=== PATIENT | female | born 1965 | race Caucasian/White ===

== ENCOUNTER → 2017-10-07 | Outpatient (CLI) | payer BC ==
--- NOTE | 2017-10-07 16:39 | WOMENS IMAGING REPORT ---
EXAM DESCRIPTION: 3D SCREENING MAMMO BILAT COMPLETED DATE/TIME: 10/07/2017 1:27 pm REASON FOR STUDY: SCREENING MAMMO Z12.31 ENCNTR SCREEN MAMMOGRAM FOR MALIGNANT NEOPLASM OF ROBERT COMPARISON: 2014 TECHNIQUE: Standard craniocaudal and mediolateral oblique views of each breast recorded using digita l acquisition and breast tomosynthesis. LIMITATIONS: None. FINDINGS: Findings present which are benign by mammographic criteria. No suspicious masses, calcifi cations or architectural distortion. Pertinent benign findings: Stable right breast intramammary node Read with the assistance of CAD. .[facility] - R2 C[employer]ova Version 1.3 .[facility] - R2 Cenova Version 1.3 .[facility] - R2 Cenova Version 2.4 .[facility] [place] Cenova Version 2.4 .[facility] - R2 [employer] Version 9.2 Benign mammographic findings may include one or more of the following: Smooth masses, popcorn/rim/co arse calcifications, asymmetries, post-procedure changes, and lesions with long-standing stability. IMPRESSION: BENIGN MAMMOGRAPHIC FINDINGS. BIRADS 2 BREAST DENSITY: b. There are scattered areas of fibroglandular density. BIRAD: 2 BENIGN FINDING(S) RECOMMENDATION: RECOMMENDATION: ROUTINE SCREENING COMMENT: The patient has been notified of the results by letter per [place] requirements. Additional no tification policies are in place for contacting patient with suspicious or incomplete findings. Quality ID #[id number]: The [employer] recommends an annual screening mammogram for women aged 40 years or over. This facility utilizes a reminder system to ensure that all patients receive reminder letters, and/or direct phone calls for appointments. This includes reminders for routine scr eening mammograms, diagnostic mammograms, or other Breast Imaging Interventions when appropriate. Th is patient will be placed in the appropriate reminder system. The [employer] [place] [employer] (ACR) has developed recommendations for screening MRI of the breast s in certain patient populations, to be used in conjunction with mammography. Breast MRI surveillanc e may be appropriate for women with more than 20% lifetime risk of developing breast cancer as deter mined by genetic testing, significant family history of the disease, or history of mantle radiation f or Hodgkins Disease. ACR Practice Guidelines 2008. DBT Technology DBT is a type of tomographic mammography. With conventional mammography, overlapping breast tissue ma y make lesions difficult to detect, even with good compression. DBT uses an x-ray tube that rotates a round the breast, taking images at different angles. These images are then combined to create thin sl ices of the breast that the radiologist can view as a 3D reconstruction. The Hologic unit can perform full-field digital mammograms (2D imaging); or DBT (3D imaging); or both, in a combination mode that quickly performs both the mammogram and the tomosynthesis scan while the breast is still compressed. PQRS 6045F: Fluoroscopic imaging is not utilized for breast tomosynthesis. TECHNICAL DOCUMENTATION: FINDING NUMBER: (1) ASSESSMENT: (1) JOB ID: [id number] [employer]- All Rights Reserved
== END ==
LOC: WI 10:44
PROVIDERS: ATTEND Physician Assistant
DX: Z12.31 Encounter for screening mammogram for malignant neoplasm of breast (principal)
CPT/HCPCS: 77063; G0202; 77067

== ENCOUNTER 2019-02-25 04:12 | Emergency (ER) | payer SELFPAY ==
[2019-02-25 04:24] VITALS: BP 156/91
[2019-02-25] MEDS ORDERED: PREDNISONE 20 MG TABLET PO ONE (04:54)
--- NOTE | 2019-02-25 04:57 | ER Document Report ---
ED General - General Chief Complaint: Difficulty Swallowing Stated Complaint: THROAT PROBLEM Time Seen by Provider: 02/25/19 04:42 Primary Care Provider: DELON DALAL PA-C [NO LOCAL MD] - Follow up as needed TRAVEL OUTSIDE OF THE [place] IN LAST 30 DAYS: No - HPI Notes: Patient is a 53-year-old female who presents to the emergency department. She believes her uvula swollen. She states it happens in the middle the night sometimes. It happens once every few years. She denies any new exposures. She states it feels difficult to swallow, but she denies any difficulty breathing. She has not taken anything for this as of yet. Of note she did have recent oral surgery for an abscessed tooth. She denies any fevers or chills. No nausea or vomiting. - Related Data Allergies/Adverse Reactions: No Known Allergies Allergy (Verified 08/27/17 10:28) Past Medical History - General Information source: Patient - Social History Smoking Status: Former Smoker Family History: Reviewed & Not Pertinent - Past Medical History Cardiac Medical History: Reports: Hx Hypercholesterolemia, Hx Hypertension Endocrine Medical History: Reports: Hx Diabetes Mellitus Type 2 Renal/ Medical History: Denies: Hx Peritoneal Dialysis Past Surgical History: Reports: Hx Cholecystectomy, Hx Thyroid Surgery, Hx Tonsillectomy - Immunizations Hx Diphtheria, Pertussis, Tetanus Vaccination: No Review of Systems - Review of Systems Constitutional: No symptoms reported EENT: See HPI Cardiovascular: No symptoms reported Respiratory: No symptoms reported Gastrointestinal: No symptoms reported Musculoskeletal: No symptoms reported Skin: No symptoms reported Neurological/Psychological: No symptoms reported Physical Exam - Vital signs Vitals: Temp Pulse Resp BP Pulse Ox 97.8 F 62 18 156/91 H 96 02/25/19 04:23 02/25/19 04:23 02/25/19 04:23 02/25/19 04:23 02/25/19 04:23 - Notes Notes: Head is normocephalic and atraumatic. Pupils are equal, round, reactive to light. Oral mucosa is moist. She has sutures in place from recent dental extractions in the right maxillary premolar molar region. Examination of the uvula yields a moderate amount of edema, it hangs down and rests on the base of the tongue. No other pharyngeal edema, oral edema, or lingual edema noted. Heart is regular rate and rhythm, lungs are clear to auscultation bilaterally with normal respiratory effort. Skin is warm and dry, no rash. Course - Re-evaluation Re-evalutation: 02/25/19 04:53 Patient presents to the emergency department for evaluation. She does have uvula edema. We will treat her with steroids and antihistamines. She is told to drink cold liquids. The patient currently does not have any insurance. We will treat her only with oral prednisone. She is reminded that the steroids will increase her blood sugar, to be very mindful of her diet in the next several days. She voiced understanding to this. She is to return to the ED with worsening or new concerning symptoms of any sort. - Vital Signs Vital signs: Temp Pulse Resp BP Pulse Ox 97.8 F 62 18 156/91 H 96 02/25/19 04:23 02/25/19 04:23 02/25/19 04:23 02/25/19 04:23 02/25/19 04:23 Discharge - Discharge Clinical Impression: Uvular edema Condition: Stable Disposition: HOME, SELF-CARE Additional Instructions: Uvula Swelling You are experienceing swelling (or "edema") of the uvula, the structure in the midline, back, roof of the mouth that hangs down into the throat area. Normally, this structure causes no problems, but when swollen, it may be painful, irritating to swallow, and even cause a "tickle" in the back of the throat leading to a cough. Common causes of swelling of the uvula are allergic reactions, irritation, trauma, or infections (both viral and bacterial). Treatment usually consists of symptomatic measures such as cool mist vaporizer, cold drinks and food and ice chips, and pain medication. Occasionally, anti-inflammatory steroid medication(prednisone) may be prescribed and an antibiotic may be prescribed if there is indication of a bacterial infection. Avoid too much exercise as breathing heavily will dry and irritate the uvula further. Likewise, too dry air as with too much heat or air conditioning will further irritate this condition. Most of the time the swelling and discomfort subsides in a day or two. If you experience difficulty breathing and passing air through the back of the throat or if you become unable to swallow, even your saliva, you should return for re-evaluation. Prescriptions: RX: Prednisone [Deltasone 20 mg Tablet] See Protocol PO DAILY #19 tablet Referrals: DELON DALAL PA-C [NO LOCAL MD] - Follow up as needed
== END 2019-02-25 05:05 | disposition home or self-care (01) ==
LOC: ER 04:12
DX: K13.79 Other lesions of oral mucosa (principal); R13.10 Dysphagia, unspecified; Z87.891 Personal history of nicotine dependence; I10 Essential (primary) hypertension; E11.9 Type 2 diabetes mellitus without complications
CPT/HCPCS: 99282; J7512

== ENCOUNTER → 2020-07-18 | Outpatient (CLI) | payer OTHER ==
[2020-07-18 11:16] LABS: ABSOLUTE EOSINOPHILS # (AUTO) 0.1 10^3/uL (0.0-0.6); ABSOLUTE LYMPHOCYTES (AUTO) 2.7 10^3/uL (0.5-4.7); ABSOLUTE MONOCYTES (AUTO) 0.5 10^3/uL (0.1-1.4); ABSOLUTE NEUT (AUTO) 3.5 10^3/uL (1.7-8.2); BASOPHILS % (AUTO) 0.5 % (0-2); HEMATOCRIT 40.9 % (36.0-47.0); HEMOGLOBIN 14.4 g/dL (12.0-15.5); LYMPHOCYTES % (AUTO) 39.4 % (13-45); MEAN CORPUSCULAR HEMOGLOBIN 29.3 pg (27.0-33.4); MEAN CORPUSCULAR HGB CONC 35.2 g/dL (32.0-36.0); MEAN CORPUSCULAR VOLUME 83 fl (80-97); MONOCYTES % (AUTO) 7.8 % (3-13); PLATELET COUNT 275 10^3/uL (150-450); RED BLOOD COUNT 4.92 10^6/uL (3.72-5.28); RED CELL DISTRIBUTION WIDTH 13.3 % (11.5-14.0); SEGMENTED NEUTROPHILS % (AUTO) 50.3 % (42-78); TOTAL CELLS COUNTED % (AUTO) 100 %
--- NOTE | 2020-07-18 14:44 | EKG REPORT ---
SEVERITY:- OTHERWISE NORMAL ECG - SINUS BRADYCARDIA : Confirmed by: Gisell Wing MD 18-Jul-2020 14:42:54
[2020-07-18 18:12] LABS: ALBUMIN 4.6 g/dL (3.5-5.0); ALKALINE PHOSPHATASE 100 U/L (38-126); ANION GAP 13 (5-19); ASPARTATE AMINO TRANSFERASE 32 U/L (14-36); BILIRUBIN,DIRECT 0.4 mg/dL (0.0-0.4); BILIRUBIN,TOTAL 0.9 mg/dL (0.2-1.3); BLOOD UREA NITROGEN 21 mg/dL (7-20); CALCIUM 9.9 mg/dL (8.4-10.2); CARBON DIOXIDE 29 mmol/L (22-30); CHLORIDE 96 mmol/L (98-107); CHOLESTEROL 221.98 mg/dL (0-200); GLUCOSE 174 mg/dL (75-110); POTASSIUM 3.7 mmol/L (3.6-5.0); TOTAL PROTEIN 7.6 g/dL (6.3-8.2); TRIGLYCERIDES 305 mg/dL (<150)
[2020-07-18 18:23] LABS: DIRECT LDL 139 mg/dL (<100)
== END ==
LOC: OD 09:49
PROVIDERS: ATTEND Nurse Practitioner Family
DX: L65.9 Nonscarring hair loss, unspecified (principal); R20.2 Paresthesia of skin; Z13.220 Encounter for screening for lipoid disorders; E66.9 Obesity, unspecified; R73.03 Prediabetes; I10 Essential (primary) hypertension; R00.9 Unspecified abnormalities of heart beat
CPT/HCPCS: 36415; 80053; 80061; 82607; 82652; 83036; 84436; 84443; 84480; 85025; 93005; 93010